=== PATIENT | female | born 1970 | race Caucasian/White ===

== ENCOUNTER 2021-06-24 09:49 | Outpatient (CLI) | payer OTHER | END 2021-06-24 09:50 | disposition home or self-care (01) | LOC: BICMAMMO 09:49 | PROVIDERS: ATTEND Nurse Practitioner Family | DX: Z12.31 Encounter for screening mammogram for malignant neoplasm of breast (principal); Z80.3 Family history of malignant neoplasm of breast | CPT/HCPCS: 77063; 77067 ==

== ENCOUNTER 2022-04-07 15:55 | Inpatient (IN) | payer SELFPAY ==
[~2022-04-07 15:55] MED LIST: Iopamidol-370 76% 500 ML 1 ML ONE
[2022-04-07 16:24] LABS: #Eosinphils 0.1 thou/uL (0.0-0.7); #Lymphocytes 2.6 thou/uL (1.20-3.40); #Monocytes 1.1 thou/uL (0.11-0.59); #Neutrophils 15.4 thou/uL (1.40-6.50); %Basophils 0.1 % (0.0-1.0); %Eosinophils 0.3 % (0.0-10.0); %Lymphocytes 13.5 % (21.0-51.0); %Monocytes 5.9 % (0.0-10.0); %Neutrophils 80.3 % (42.0-75.0); Hemoglobin 14.9 g/dL (12.0-16.0); Mean Corpuscular HGB CONC 33.2 g/dL (32.0-36.0); Mean Corpuscular Hemoglobin 30.4 pg (27.0-31.0); Mean Corpuscular Volume 91.4 fl (78.0-98.0); Mean Platelet Volume 9.6 fL (7.4-10.4); Platelet Count 224 10x3/uL (130-400); RBC Distribution Width 12.1 % (11.5-14.5); Red Blood Cell (RBC) Count 4.89 mill/uL (4.20-5.40); White Blood Cell (WBC) Count 19.2 10x3/uL (4.8-10.8)
[2022-04-07 16:42] LABS: ALT (SGPT) 14 U/L (8-55); AST (SGOT) 11 U/L (5-34); Albumin 4.1 g/dL (3.5-5.0); Alkaline Phosphatase 107 U/L (40-110); Anion Gap 15 mmol/L (10-20); BUN (Urea Nitrogen) 7 mg/dL (9.8-20.1); Bilirubin, Total 0.8 mg/dL (0.2-1.2); Calc. Creatinine Clearance 0 mL/min (70-130); Calcium 9.4 mg/dL (7.8-10.44); Carbon Dioxide 24 mmol/L (22-29); Chloride 102 mmol/L (98-107); Estimated GFR 91; Globulin 3.3 g/dL (2.4-3.5); Glucose 251 mg/dL (70-105); Protein, Total 7.4 g/dL (6.0-8.3); Sodium 137 mmol/L (136-145)
[2022-04-07 18:51] LABS: BHCG - Serum Negative (NEGATIVE); Pregs Control Background? CLEAR/WHITE (CLR/WHITE); Pregs Control Bar Appear? YES (CONTROL BAR)
[2022-04-07] MEDS ORDERED: Ketorolac Tromethamine 30 MG/ML VIAL ONE (19:14)
[2022-04-07] MEDS ORDERED: Cefepime 2 GM VIAL ONE (19:14)
[2022-04-07] MEDS ORDERED: Vancomycin 1 GM/200 ML (FROZEN) BAG ONE (19:58)
[2022-04-07] MEDS ORDERED: Ondansetron PF 4 MG/2 ML Vial IVP PRN (23:00)
[2022-04-07] MEDS ORDERED: Ondansetron ODT 4 MG TAB SL PRN (23:00)
[2022-04-08 00:09] VITALS: BMI 24.6
[2022-04-08] MEDS ORDERED: Dextrose 5% in Water 1,000 ML IV PRN (03:31)
[2022-04-08] MEDS ORDERED: HumaLOG 300 UNITS/3 ML VIAL SC PRN (03:31)
[2022-04-08] MEDS ORDERED: Dextrose 50% Abboject 50 ML SYRINGE SLOW IVP PRN (03:31)
[2022-04-08] MEDS: Acetaminophen 325 MG TAB PO PRN ×2 (04:31→21:34)
[2022-04-08] MEDS ORDERED: VANCOMYCIN 1.25 GM/250 ML BAG 1.25 GM in Premix Bag 1 BAG IVPB SCH (05:00)
[2022-04-08] MEDS: HumaLOG 300 UNITS/3 ML VIAL SC PRN ×2 (06:30→16:53)
[2022-04-08 07:34] LABS: #Basophils 0.1 thou/uL (0.0-0.2); #Eosinphils 0.3 thou/uL (0.0-0.7); #Lymphocytes 2.8 thou/uL (1.20-3.40); #Monocytes 1.1 thou/uL (0.11-0.59); #Neutrophils 10.7 thou/uL (1.40-6.50); %Basophils 0.4 % (0.0-1.0); %Eosinophils 1.7 % (0.0-10.0); %Lymphocytes 18.7 % (21.0-51.0); %Monocytes 7.3 % (0.0-10.0); %Neutrophils 71.9 % (42.0-75.0); Hemoglobin 12.8 g/dL (12.0-16.0); Mean Corpuscular HGB CONC 33.4 g/dL (32.0-36.0); Mean Corpuscular Hemoglobin 30.9 pg (27.0-31.0); Mean Corpuscular Volume 92.3 fl (78.0-98.0); Mean Platelet Volume 9.9 fL (7.4-10.4); Platelet Count 210 10x3/uL (130-400); Red Blood Cell (RBC) Count 4.14 mill/uL (4.20-5.40); White Blood Cell (WBC) Count 14.9 10x3/uL (4.8-10.8)
[2022-04-08 07:39] LABS: Anion Gap 12 mmol/L (10-20); BUN (Urea Nitrogen) 11 mg/dL (9.8-20.1); Calc. Creatinine Clearance 100 mL/min (70-130); Calcium 8.8 mg/dL (7.8-10.44); Carbon Dioxide 23 mmol/L (22-29); Chloride 102 mmol/L (98-107); Estimated GFR 104; Glucose 200 mg/dL (70-105); Potassium 3.4 mmol/L (3.5-5.1); Sodium 134 mmol/L (136-145)
[2022-04-08] MEDS: Cefepime 1 GM in Sodium Chloride 0.9% 100 ML IVPB SCH ×2 (08:40→21:33)
[2022-04-08] MEDS ORDERED: Electrolyte Replacement Protocol 1 EACH FS SCH (09:30)
[2022-04-08] MEDS ORDERED: Potassium Chloride 20 MEQ TAB PO SCH (10:00)
[2022-04-08 10:01] LABS: Magnesium 1.6 mg/dL (1.6-2.6)
[2022-04-08] MEDS ORDERED: Magnesium 2 GM/50 ML(in water) 2 GM in Premix Bag 1 BAG IVPB SCH (10:15)
[2022-04-08] MEDS: Morphine 2 MG/ML VIAL SLOW IVP PRN (12:04)
[2022-04-08] MEDS ORDERED: glyBURIDE 2.5 MG TAB PO SCH (15:00)
[2022-04-08] MEDS: Vancomycin 1 GM in Premix Bag 1 BAG IVPB SCH (16:53)
[2022-04-08] MEDS: Atorvastatin Calcium 40 MG TAB PO SCH (21:33)
[2022-04-09] MEDS: Vancomycin 1 GM in Premix Bag 1 BAG IVPB SCH ×2 (05:03→17:12)
[2022-04-09 06:40] LABS: #Eosinphils 0.4 thou/uL (0.0-0.7); #Lymphocytes 2.5 thou/uL (1.20-3.40); #Monocytes 0.9 thou/uL (0.11-0.59); #Neutrophils 8.2 thou/uL (1.40-6.50); %Basophils 0.4 % (0.0-1.0); %Eosinophils 3.5 % (0.0-10.0); %Monocytes 7.4 % (0.0-10.0); %Neutrophils 67.7 % (42.0-75.0); Hemoglobin 13.3 g/dL (12.0-16.0); Mean Corpuscular HGB CONC 33.3 g/dL (32.0-36.0); Mean Corpuscular Hemoglobin 30.6 pg (27.0-31.0); Mean Platelet Volume 9.4 fL (7.4-10.4); Platelet Count 232 10x3/uL (130-400); Red Blood Cell (RBC) Count 4.34 mill/uL (4.20-5.40); White Blood Cell (WBC) Count 12.1 10x3/uL (4.8-10.8)
[2022-04-09 06:45] LABS: Hemoglobin A1c 8.7 % (4.0-6.0)
[2022-04-09 07:10] LABS: Anion Gap 12 mmol/L (10-20); BUN (Urea Nitrogen) 10 mg/dL (9.8-20.1); Calc. Creatinine Clearance 105 mL/min (70-130); Calcium 8.5 mg/dL (7.8-10.44); Carbon Dioxide 24 mmol/L (22-29); Chloride 105 mmol/L (98-107); Estimated GFR 106; Glucose 196 mg/dL (70-105); Potassium 3.9 mmol/L (3.5-5.1); Sodium 137 mmol/L (136-145)
[2022-04-09] MEDS: glyBURIDE 2.5 MG TAB PO SCH (08:43)
[2022-04-09] MEDS: Cefepime 1 GM in Sodium Chloride 0.9% 100 ML IVPB SCH (08:43)
[2022-04-09] MEDS: Alogliptin 6.25 MG TAB PO SCH (08:43)
[2022-04-09] MEDS ORDERED: Lidocaine 1% w/Epinephrine 1:100K 20 ML VIAL ONE (11:21)
[2022-04-09] MEDS ORDERED: Ondansetron PF 4 MG/2 ML Vial IVP PRN (12:15)
[2022-04-09 16:46] LABS: Vancomycin, Trough 13.2 ug/mL
[2022-04-09] MEDS: Morphine 2 MG/ML VIAL SLOW IVP PRN (18:36)
[2022-04-09] MEDS: Acetaminophen 325 MG TAB PO PRN (20:35)
[2022-04-09] MEDS: Atorvastatin Calcium 40 MG TAB PO SCH (20:36)
[2022-04-09] MEDS: Cefepime 2 GM in Sodium Chloride 0.9% 100 ML IVPB SCH (20:36)
[2022-04-10] MEDS: Vancomycin 1 GM in Premix Bag 1 BAG IVPB SCH ×2 (04:15→17:43)
[2022-04-10] MEDS: Alogliptin 6.25 MG TAB PO SCH (08:23)
[2022-04-10] MEDS: glyBURIDE 2.5 MG TAB PO SCH (08:23)
[2022-04-10] MEDS: metFORMIN 500 MG TAB PO SCH ×2 (08:24→17:43)
[2022-04-10] MEDS: Cefepime 2 GM in Sodium Chloride 0.9% 100 ML IVPB SCH ×2 (08:24→19:45)
[2022-04-10] MEDS: Morphine 2 MG/ML VIAL SLOW IVP PRN (09:38)
[2022-04-10] MEDS: HumaLOG 300 UNITS/3 ML VIAL SC PRN (12:44)
[2022-04-10] MEDS: Atorvastatin Calcium 40 MG TAB PO SCH (19:46)
[2022-04-11] MEDS: Morphine 2 MG/ML VIAL SLOW IVP PRN (02:07)
[2022-04-11 04:19] LABS: #Basophils 0.1 thou/uL (0.0-0.2); #Eosinphils 0.5 thou/uL (0.0-0.7); #Lymphocytes 3.4 thou/uL (1.20-3.40); #Monocytes 0.7 thou/uL (0.11-0.59); #Neutrophils 5.9 thou/uL (1.40-6.50); %Basophils 0.7 % (0.0-1.0); %Lymphocytes 32.4 % (21.0-51.0); %Monocytes 6.4 % (0.0-10.0); %Neutrophils 55.5 % (42.0-75.0); Hemoglobin 12.6 g/dL (12.0-16.0); Mean Corpuscular HGB CONC 34.1 g/dL (32.0-36.0); Mean Corpuscular Hemoglobin 31.3 pg (27.0-31.0); Mean Corpuscular Volume 91.8 fl (78.0-98.0); Mean Platelet Volume 9.2 fL (7.4-10.4); Platelet Count 250 10x3/uL (130-400); Red Blood Cell (RBC) Count 4.01 mill/uL (4.20-5.40); White Blood Cell (WBC) Count 10.6 10x3/uL (4.8-10.8)
[2022-04-11 04:37] LABS: Anion Gap 12 mmol/L (10-20); BUN (Urea Nitrogen) 12 mg/dL (9.8-20.1); Calc. Creatinine Clearance 106 mL/min (70-130); Calcium 8.7 mg/dL (7.8-10.44); Carbon Dioxide 24 mmol/L (22-29); Chloride 104 mmol/L (98-107); Estimated GFR 106; Glucose 216 mg/dL (70-105); Potassium 3.9 mmol/L (3.5-5.1); Sodium 136 mmol/L (136-145)
[2022-04-11] MEDS: Vancomycin 1 GM in Premix Bag 1 BAG IVPB SCH (05:36)
[2022-04-11] MEDS: glyBURIDE 2.5 MG TAB PO SCH (08:46)
[2022-04-11] MEDS: Cefepime 2 GM in Sodium Chloride 0.9% 100 ML IVPB SCH (08:46)
[2022-04-11] MEDS: Alogliptin 6.25 MG TAB PO SCH (08:46)
[2022-04-11] MEDS: metFORMIN 500 MG TAB PO SCH (08:46)
[2022-04-11 11:58] VITALS: TEMP 98
[2022-04-11 11:59] VITALS: BP 107/73
== END 2022-04-11 13:12 | disposition home or self-care (01) | DRG 872 ==
LOC: ERS 15:55 → T4-B 19:49 → OBSVTOIN 04-08 03:35
PROVIDERS: ADMIT Internal Medicine; ATTEND Internal Medicine
PROC: 3E03329 Introduction of Other Anti-infective into Peripheral Vein, Percutaneous Approach (ICD-10-PCS; 2022-04-08)
PROC: 0HB8XZZ Excision of Buttock Skin, External Approach (ICD-10-PCS; principal; 2022-04-09)
PROC: 0HBJXZZ Excision of Left Upper Leg Skin, External Approach (ICD-10-PCS; 2022-04-09)
PROC: 0H98XZZ Drainage of Buttock Skin, External Approach (ICD-10-PCS; 2022-04-09)
PROC: 0H9JXZZ Drainage of Left Upper Leg Skin, External Approach (ICD-10-PCS; 2022-04-09)
DX: A41.01 Sepsis due to Methicillin susceptible Staphylococcus aureus (principal); E87.1 Hypo-osmolality and hyponatremia; L03.317 Cellulitis of buttock; Z16.11 Resistance to penicillins; Z16.29 Resistance to other single specified antibiotic; L02.31 Cutaneous abscess of buttock; L02.416 Cutaneous abscess of left lower limb; Z20.822 Contact with and (suspected) exposure to COVID-19; E87.6 Hypokalemia; E83.42 Hypomagnesemia; E11.9 Type 2 diabetes mellitus without complications; F17.210 Nicotine dependence, cigarettes, uncomplicated; Z88.1 Allergy status to other antibiotic agents; Z88.2 Allergy status to sulfonamides; Z88.8 Allergy status to other drugs, medicaments and biological substances; Z79.84 Long term (current) use of oral hypoglycemic drugs; Z90.49 Acquired absence of other specified parts of digestive tract; Z80.1 Family history of malignant neoplasm of trachea, bronchus and lung; Z82.49 Family history of ischemic heart disease and other diseases of the circulatory system
CPT/HCPCS: 36415; 36416; 74177; 80048; 80053; 80202; 83036; 83605; 83735; 84703; 85025; 87040; 87070; 87077; 87186; 87205; 93005; 96365; 96375; 97139; G0378; J0692; J1815; J1885; J2272; J2405; J3370; J3370-JW; J3475; J3490; Q9967; U0003; U0005

== ENCOUNTER 2022-12-13 12:01 | Emergency (ER) | payer SELFPAY ==
[2022-12-13 12:55] LABS: Bacteria/HPF None Seen HPF (None Seen); Bilirubin Negative (Negative); Blood, Urine Negative (Negative); CAUTI Indications for Culture Pelvic or flank pain; Clarity Clear (Clear); Glucose, Urine (Dipstick) Greater than 1000 mg/dL (Negative); Ketone, Urine Negative (Negative); Leukocyte 75 Leu/uL (Negative); Nitrite Negative (Negative); Protein, Urine (Dipstick) 10 mg/dL (Neg-Trace); RBC/HPF 0-3 HPF (0-3); Specific Gravity, Urine 1.021 (1.002-1.036); Squamous Epithelial 0-3 HPF (0-3); pH, Urine 5.5 (5.0-9.0)
[2022-12-13 12:59] LABS: Urine Culture Reflex No No
[2022-12-13] MEDS ORDERED: Acetaminophen 325 MG TAB ONE (13:44)
[2022-12-13 13:48] LABS: #Basophils 0.1 thou/uL (0.0-0.2); #Eosinphils 0.2 thou/uL (0.0-0.7); #Monocytes 1.1 thou/uL (0.11-0.59); #Neutrophils 9.2 thou/uL (1.40-6.50); %Basophils 0.5 % (0.0-1.0); %Eosinophils 1.6 % (0.0-10.0); %Lymphocytes 19.3 % (21.0-51.0); %Monocytes 8.2 % (0.0-10.0); %Neutrophils 70.1 % (42.0-75.0); Hematocrit 44.7 % (36.0-47.0); Hemoglobin 14.7 g/dL (12.0-16.0); Mean Corpuscular HGB CONC 32.9 g/dL (32.0-36.0); Mean Corpuscular Hemoglobin 29.6 pg (27.0-31.0); Mean Corpuscular Volume 89.9 fl (78.0-98.0); Mean Platelet Volume 10.7 fL (7.4-10.4); Platelet Count 302 10x3/uL (130-400); RBC Distribution Width 12.7 % (11.5-14.5); Red Blood Cell (RBC) Count 4.97 mill/uL (4.20-5.40); White Blood Cell (WBC) Count 13.1 10x3/uL (4.8-10.8)
[2022-12-13 14:11] LABS: ALT (SGPT) 10 U/L (8-55); AST (SGOT) 13 U/L (5-34); Albumin 4.3 g/dL (3.5-5.0); Alkaline Phosphatase 103 U/L (40-110); Anion Gap 14 mmol/L (10-20); BUN (Urea Nitrogen) 8 mg/dL (9.8-20.1); Bilirubin, Total 0.2 mg/dL (0.2-1.2); Calc. Creatinine Clearance 0 mL/min (70-130); Calcium 9.4 mg/dL (7.8-10.44); Carbon Dioxide 25 mmol/L (22-29); Chloride 102 mmol/L (98-107); Estimated GFR 99; Globulin 2.6 g/dL (2.4-3.5); Glucose 209 mg/dL (70-105); Lipase 15 U/L (8-78); Potassium 4.1 mmol/L (3.5-5.1); Protein, Total 6.9 g/dL (6.0-8.3); Sodium 137 mmol/L (136-145)
[2022-12-13] MEDS ORDERED: Iopamidol-370 76% 500 ML MDV (1 ML CHARGE) ONE (15:53)
== END 2022-12-13 17:32 | disposition home or self-care (01) ==
LOC: ERS 12:01
DX: N83.8 Other noninflammatory disorders of ovary, fallopian tube and broad ligament (principal); E11.9 Type 2 diabetes mellitus without complications; F17.210 Nicotine dependence, cigarettes, uncomplicated; Z79.84 Long term (current) use of oral hypoglycemic drugs; Z79.899 Other long term (current) drug therapy
CPT/HCPCS: 36415; 74177; 80053; 81001; 83690; 85025; 96360; Q9967

== ENCOUNTER 2023-04-10 10:15 | Outpatient (CLI) | payer BC | END 2023-04-10 10:16 | disposition home or self-care (01) | LOC: PET 10:15 | PROVIDERS: ATTEND Internal Medicine Hematology & Oncology | DX: C56.1 Malignant neoplasm of right ovary (principal); R19.00 Intra-abdominal and pelvic swelling, mass and lump, unspecified site | CPT/HCPCS: 78815; A9552 ==

== ENCOUNTER 2023-09-02 08:45 | Outpatient (CLI) | payer BC | END 2023-09-02 08:46 | disposition home or self-care (01) | LOC: PET 08:45 | PROVIDERS: ATTEND Internal Medicine Hematology & Oncology | DX: C56.1 Malignant neoplasm of right ovary (principal); Z98.890 Other specified postprocedural states | CPT/HCPCS: 78815; A9552 ==

== ENCOUNTER 2024-01-25 09:30 | Outpatient (CLI) | payer BC | END 2024-01-25 09:31 | disposition home or self-care (01) | LOC: PET 09:30 | PROVIDERS: ATTEND Internal Medicine Hematology & Oncology | DX: C56.1 Malignant neoplasm of right ovary (principal); J84.9 Interstitial pulmonary disease, unspecified | CPT/HCPCS: 78815; A9552 ==

== ENCOUNTER 2024-11-01 10:15 | Outpatient (CLI) | payer OTHER | END 2024-11-01 10:16 | disposition home or self-care (01) | LOC: PET 10:15 | PROVIDERS: ATTEND Internal Medicine Hematology & Oncology | DX: C56.1 Malignant neoplasm of right ovary (principal); C78.6 Secondary malignant neoplasm of retroperitoneum and peritoneum | CPT/HCPCS: 78815; A9552 ==